=== PATIENT | female | born 1950 | race Hispanic/Latino ===

== ENCOUNTER 2016-12-09 15:28 | Inpatient (IN) | payer MEDICARE, OTHER ==
[~2016-12-09] VITALS: Ht 157.5 cm; Wt 70.1 kg
[~2016-12-09 15:28] MED LIST: Vancomycin Dose per Pharmacist XX ONE
[2016-12-09 15:49] VITALS: BP 124/73; PULSE 99; RESP 10; O2SAT 98
[2016-12-09 17:49] VITALS: BP 145/76; PULSE 113; RESP 22; O2SAT 98
[2016-12-09] MEDS ORDERED: Ondansetron 8 mg ODT Tablet ONE (17:51)
--- NOTE | 2016-12-09 18:26 | ED.REPORT ---
HPI-General Illness Date of Service Dec 09, 2016 ED Provider: Marcie Yna MD Pt is a 66 y.o. female with a hx of ESRD on hemodialysis, DM, and CVA who presents to the ED c/o shaking onset today. Pt reports associated nausea, vomiting, and temporal headache. Denies abdominal pain, fever, chills, cough, numbness, and weakness. She sates she took Tylenol around 1600 today. She is concerned as she had similar sx when she had a "blood infection". Pt's last dialysis treatment was yesterday. Nursing Notes Stated Complaint: SHAKING Chief Complaint: General Complaint Nursing Notes Reviewed: Yes Allergies: Coded Allergies: No Known Allergies (Unverified , 12/09/16) General Time Seen by MD: 18:25 Chief Complaint Other (Shaking) Hx Obtained From: Patient Arrived By: Walk-in Sudden in Onset?: Yes Onset Occurred: 9 - 12 hours ago Symptom Duration: Since onset Severity: Current: No pain currently Severity: Maximum: No pain Similar Sx Previous: Yes Past Medical History Past Medical History ESRD on hemodialysis DM II hx of CVA Reports: Hypertension Past Surgical History None reported Smoking History Former Smoker Social History Other Social History: Good social support Ambulatory Status Independent Review of Systems Full Review of Systems Constitutional: Denies: Chills, Fever Respiratory: Denies: Non-productive cough GI: Reports: Nausea, Vomiting, Denies: Abdominal pain Neurologic: Reports: Shaking, Denies: Numbness, Weakness Complete sys rev & neg: except as marked. Physical Exam Vital Signs Vital Signs Date Time Temp Pulse Resp B/P Pulse Ox O2 Delivery O2 Flow Rate FiO2 12/09/16 20:36 38.1 90 17 129/60 94 Room Air 12/09/16 19:02 39.1 100 20 38/86 92 Room Air 12/09/16 17:49 37.2 113 22 145/76 98 Room Air 12/09/16 15:49 36.8 99 10 124/73 98 Room Air Initial VS: Reviewed Head / Eyes: Atraumatic, Normocephalic, PERRL Extremities: Vascular intact, Neuro intact Skin: Warm, Dry, No cyanosis Neurologic: Alert, Oriented, Nonfocal Psychiatric: Mood/affect normal, Behavior normal, Normal thought content General/Constitutional: Awake, Alert, No acute distress, Well appearing, Well developed, Well hydrated Left AC dialysis fistula with palpable thrill Respiratory / Chest: Atraumatic, Breath sounds NL, Breath sounds = bilat, No respiratory distress Cardiovascular: Regular rhythm, Heart sounds NL Heart Rate / Rhythm: Positive: Tachycardia Abdomen: Atraumatic, Soft, Non-tender, No guarding, No rebound, No distention Interpretation & Diagnostics Lab Results Interpretation Result Diagram: 12/09/16 1858 12/09/16 1858 Test 12/09/16 18:58 12/09/16 20:37 White Blood Count 12.2th/mm3 (3.8-10.1) Red Blood Count 4.00mil/mm3 (3.90-5.20) Hemoglobin 12.2g/dL (12.0-15.6) Hematocrit 37.5% (35.0-46.0) Mean Corpuscular Volume 93.8fL (81-100) Mean Corpuscular Hemoglobin 30.5pg (27.0-35.0) Mean Corpuscular Hemoglobin Concent 32.5% (32.0-37.0) Red Cell Distribution Width 13.7% (12.3-15.4) Platelet Count 235bil/L (150-400) Neutrophils (%) (Auto) 88.2% (40-74) Lymphocytes (%) (Auto) 3.8% (14-46) Monocytes (%) (Auto) 7.4% (4-12) Eosinophils (%) (Auto) 0.2% (0-5) Basophils (%) (Auto) 0.2% (0-3) Prothrombin Time 9.9sec (8.1-12.5) Prothromb Time International Ratio 0.93ratio Activated Partial Thromboplast Time 25.4sec (22.8-33.0) Sodium Level 138mEq/L (134-144) Potassium Level 6.2mEq/L (3.5-5.2) Chloride Level 94mEq/L (97-108) Carbon Dioxide Level 25mmol/L (18-29) Blood Urea Nitrogen 40mg/dL (8-27) Creatinine 5.14mg/dL (0.57-1.00) Estimat Glomerular Filtration Rate 12mL/min (>59) Glucose Level 251mg/dL (60-99) Calcium Level 9.8mg/dL (8.5-10.1) Phosphorus Level 2.0mg/dL (2.5-4.9) Magnesium Level 2.0mg/dL (1.6-2.6) Total Bilirubin 0.5mg/dL (0.0-1.2) Aspartate Amino Transf (AST/SGOT) 21U/L (0-50) Alanine Aminotransferase (ALT/SGPT) 28U/L (0-32) Alkaline Phosphatase 105U/L (25-165) Troponin T 0.025ug/L (0.0-0.011) Pro-B-Type Natriuretic Peptide 1698pg/mL (0-301) Total Protein 7.8g/dL (6.4-8.4) Albumin 4.5g/dL (3.4-5.0) Procalcitonin 0.45ng/mL (0.00-0.08) Hold Chamberlain Top Tube Received (Received) Urine Color Yellow (YELLOW) Urine Appearance Hazy (CLEAR,HAZY) Urine pH 8.5 (5.0-8.0) Urine Specific [place] 1.015 (1.003-1.035) Urine Protein 300mg/dL (NEG,TRACE) Urine Glucose (UA) 500mg/dL (NEGATIVE) Urine Ketones Negativemg/dL (NEGATIVE) Urine Occult Blood Trace (NEGATIVE) Urine Nitrite Negative (NEGATIVE) Urine Bilirubin Negative (NEGATIVE) Urine Urobilinogen Normalmg/dL (NORMAL) Urine Leukocyte Esterase Negative (NEGATIVE) Urine RBC 0-2/hpf (0-2) Urine WBC 0-5/hpf (0-5) Urine Epithelial Cells Few/hpf (NONE-MOD) Urine Crystals None seen (NONE SEEN) Urine Bacteria Few/hpf (NONE-FEW) Urine Hyaline Casts None/lpf (NONE) Urine Granular Casts None seen (NONE SEEN) Urine Waxy Casts None seen (NONE SEEN) Urine Red Blood Cell Casts None seen (NONE SEEN) Urine White Blood Cell Casts None seen (NONE SEEN) Urine Mucus None seen (None Seen) Urine Trichomonas None seen (NONE SEEN) Urine Yeast None (NONE SEEN) Urinalysis Comment None Urine Culture Reflexed Not indicated General Lab Results Interp 1: CBC - leukocytosis ECG Interpretation ECG Interpretation: No peaked T-waves T-wave inversion AVR and AVL No prior for comparison Time: 18:49 Interpreted by: ED physician Rhythm / Conduction: Tachycardia (rate of 104) BMP / CMP Interpretation K+ elevated, Creatinine elevated X-Ray Chest Interpretation Chest Xray Interpretation: IMPRESSION: Acute disease is not seen in the two-view chest. No evidence for failure or infiltrate. Dictated by: William Marte M.D. on 12/09/2016 at 19:27 Approved by: William Marte M.D. on 12/09/2016 at 19:28 Re-Eval/Medical Decision Med Decision/Clinical Course 66-year-old female with past medical history of hypertension, diabetes, hyperlipidemia, end-stage renal disease on Sunday dialysis here febrile with Rigors and no localizing symptoms. Differential diagnosis includes but is not limited to pneumonia versus urinary tract infection versus bacteremia versus other occult infection. At this time, I do not feel she has meningitis, nor do I feel she needs lumbar puncture to rule it out. Chest x- ray is unremarkable. Urinalysis is normal. Patient has elevated creatinine and potassium consistent with end-stage renal disease. I discussed the case with nephrology Dr. Dang who recommended 30 mg of by mouth Kayexalate which I have given. CBC shows mild leukocytosis. I have given the patient vancomycin and Zosyn, admitted her to the hospitalist Dr. Connor. She is aware and amenable to admission at this time. Source of Hx: Old records Time of Eval: 20:25 Re-Evaluation/Progress Note: Pt rechecked. Discussed lab results and need for admit, pt understands and agrees with plan. Pt's mems device scientist is Dr. Maldonado. Consultation #1: Referral / Consult Name: Luz Marina Manzanares DO Consulted With: Hospitalist Call Returned at: 20:55 Note: Discussed pt conditon and pending consult with Dr. Dang, Nephrology. Hospitalist refuses admit until Nephrology consults. Consultation #2: Referral / Consult Name: Hubert Dang DO Consulted With: Nephrology Call Returned at: 21:12 Note: Consulted with Dr. Dang. Recommends 30 of Kayexalate. Consultation #3: Referral / Consult Name: Luz Marina Manzanares DO Consulted With: Hospitalist Call Returned at: 21:25 Silverware Assembler: Will see patient, Agrees with eval, Agrees with plan, Accepts admit Note: Discussed consult with Dr. Dang. Accepts pt. Counseled Regarding: Diagnosis, Lab results, Need for admission Discharge & Departure Primary Impression: Sepsis Additional Impression: Hyperkalemia Disposition: ADMITTED TO HOSPITAL Discharge Condition All VS Reviewed: Yes Condition: Stable Referrals: Juan Carlos Beasley MD (PCP) Margarita Attestation Portions of this note were transcribed by Gudelia Teresa. I, Dr. Yan personally performed the history, physical exam and medical decision-making; I reviewed and confirmed the accuracy of the information in the transcribed note. Signed by : Margarita Castro, 12/09/16 and 2158. copies to: Juan Carlos Beasley MD, Rebecca A MD Dec 09, 2016 18:26 GUDELIA TERESA Dec 09, 2016 18:34
[2016-12-09 19:02] VITALS: BP 38/86; PULSE 100; RESP 20; O2SAT 92
[2016-12-09] MEDS ORDERED: Piperacillin-Tazo 3.375 Gm Inj 3.375 GM in Dextrose 5% Minibag Plus 50 ML IV ONE (19:10)
[2016-12-09 19:17] LABS: BASOPHILS % (AUTO) 0.2 % (0-3); EOSINOPHILS % (AUTO) 0.2 % (0-5); MONOCYTES % (AUTO) 7.4 % (4-12); Mean Corpuscular Hemoglobin 30.5 pg (27.0-35.0); Mean Corpuscular Volume 93.8 fL (81-100); NEUTROPHILS % (AUTO) 88.2 % (40-74); Platelet Count 235 bil/L (150-400)
[2016-12-09] MEDS ORDERED: Vancomycin Inj 1,500 MG in 0.9% Sodium Chloride 500 ML IV ONE (19:25)
--- NOTE | 2016-12-09 19:29 | DRSVH ---
PROCEDURE: X-RAY CHEST, TWO VIEWS ([id number]) INDICATIONS: dialysis TECHNIQUE: 2 views of the chest were acquired. COMPARISON: None. FINDINGS: Surgical changes and devices: assistant service manager leads are seen over the chest. There is a stent in the region of the axillary artery on the left. Lungs and pleura: No pleural effusions or pneumothorax. Lungs are clear. Mediastinum: Mediastinal contours are normal. Heart size is normal. Bones and chest wall: No suspicious bony abnormalities. Soft tissues appear unremarkable. IMPRESSION: Acute disease is not seen in the two-view chest. No evidence for failure or infiltrate. Dictated by: iWlliam Marte M.D. on 12/09/2016 at 19:27 Approved by: William Marte M.D. on 12/09/2016 at 19:28
[2016-12-09] MEDS ORDERED: 0.9% Sodium Chloride 0 ML ONE (19:34)
[2016-12-09 19:43] LABS: INR 0.93 ratio
[2016-12-09 19:58] LABS: TROPONIN T 0.025 ug/L (0.0-0.011)
[2016-12-09 20:36] VITALS: BP 129/60; PULSE 90; RESP 17; O2SAT 94
[2016-12-09 21:07] LABS: APPEARANCE,URINE HAZY (CLEAR,HAZY); COLOR,URINE YELLOW (YELLOW); OCCULT BLOOD,URINE TRACE (NEGATIVE); PH,URINE 8.5 (5.0-8.0)
[2016-12-09 21:08] LABS: UROBILINOGEN,URINE NORMAL (NORMAL)
[2016-12-09] MEDS ORDERED: Ondansetron 2 mg/mL 2 mL Inj IVPUSH PRN ×2 (21:35→23:10)
[2016-12-09] MEDS ORDERED: Polyethylene Glycol (PEG) 17 Gm Powder PO PRN ×2 (21:35→23:10)
[2016-12-09] MEDS ORDERED: GABA-502 PO (22:38)
[2016-12-09] MEDS ORDERED: CALC500T9 PO (22:38)
[2016-12-09] MEDS ORDERED: AMLO5TAB2 PO (22:38)
[2016-12-09] MEDS ORDERED: ASPI-973 PO (22:38)
[2016-12-09] MEDS ORDERED: LISI-567 PO (22:38)
[2016-12-09] MEDS ORDERED: SIMV20TA4 PO (22:38)
[2016-12-09 22:48] VITALS: BP 123/62; PULSE 86; RESP 18; O2SAT 94
--- NOTE | 2016-12-09 22:56 | NUR ---
admit note: pt. admitted for fever, chills, shaking, nausea, since today. Pt. had dialysis yesterday, potassium was 6.2 30mg kayexalate given.
[2016-12-09] MEDS ORDERED: Alum-Mag Hydrox-Simeth 30 mL Suspension PO PRN (23:10)
--- NOTE | 2016-12-09 23:28 | PCM.HPMED ---
Subjective Date of Service Dec 09, 2016 Primary Provider: Admitting Physician: Luz Marina Manzanares DO Primary Care Physician: Juan Carlos Beasley MD Attending Physician: Luz Marina Manzanares DO Admit Status: From the Emergency Department Chief Complaint: Shaking and Chills History of Present Illness: Sol Ren is a 66 year old woman with a PMH of ESRD on MWF Hemodialysis, DM2 with nephropathy and neuropathy, and CVA who presents with a 1 day history of shaking chills which she states are very similar to a previous episode associated with a severe "blood infection". She states that she wasn't feeling well last evening following her dialysis, and when she awoke she continued to feel ill and in the afternoon began to manifest shaking and chills with a single event of emesis. She denies productive cough, SOB, chest pain, urinary symptoms, pain or redness at fistula site, neck tenderness or restricted ROM, headache, diarrhea or constipation, or any soft tissue swelling or pain. She states that she does make a small amount of urine in the mornings and did so today without incident. In the ED the patient showed leukocytosis and elevated Procalcitonin, Hyperkalemia, and a benign ECG with negative Trop. She was started on Vanco and Zosyn. Comprehensive ROS negative except as outlined above. Allergies Coded Allergies: No Known Allergies (Unverified , 12/09/16) Home Medications Amlodipine 5 mg daily Aspirin 81 mg daily Calcium carbonate 500 mg daily Gabapentin 300 mg PO hS Lisinopril 20 mg PO daily Simvastatin 20 mg po Daily PMH ESRD on dialysis DM2 with neuropathy and nephropathy CVA HTN Surgical History none Family History Diabetes in multiple family members Social History Hx Alcohol Use: No Hx Substance Use: No Smoking Status: Former Smoker Exam Vital Signs Vital Sign - Last Date Time Temp Pulse Resp B/P Pulse Ox O2 Delivery O2 Flow Rate FiO2 12/09/16 22:48 37.7 86 18 123/62 94 Room Air Exam Gen: A/O x3 pleasant cooperative woman in NAD Neck: Supple, Full ROM, non tender, no lymphadenopathy HEENT: PERRL, EOMI, no scleral icterus, no conjunctival pallor, mucous membranes dry, flaked skin on upper and lower lip CV: RRR, no murmurs rubs or gallops Resp: lungs CTA BL, no wheezing rales or rhonchi Abdomen: soft, non tender, no organomegaly, BS+ 4Q : No CVA or suprapubic tenderness Musculoskeletal: Slightly reduced muscle tone, no obvious focal cellulitic process Extr: Left ante cubital fistula without erythema or tenderness and normal thrill , no cyanosis clubbing or edema Neuro: CN 2-12 grossly intact, no focal neurologic deficit. Lab and Diagnostics Labs Item Value Date Time Neutrophils (%) (Auto) 88.2 % H 12/09/161857 Lymphocytes (%) (Auto) 3.8 % L 12/09/161857 Estimat Glomerular Filtration Rate 12 mL/min 12/09/161857 Calcium Level 9.8 mg/dL 12/09/161857 Phosphorus Level 2.0 mg/dL L 12/09/161857 Magnesium Level 2.0 mg/dL 12/09/161857 Total Bilirubin 0.5 mg/dL 12/09/161857 Aspartate Amino Transf (AST/SGOT) 21 U/L 12/09/161857 Alanine Aminotransferase (ALT/SGPT) 28 U/L 12/09/161857 Alkaline Phosphatase 105 U/L 12/09/161857 Troponin T 0.025 ug/L H 12/09/161857 Pro-B-Type Natriuretic Peptide 1698 pg/mL H 12/09/161857 Total Protein 7.8 g/dL 12/09/161857 Albumin 4.5 g/dL 12/09/161857 Procalcitonin 0.45 ng/mL H 12/09/161857 Result Diagram: 12/09/16185712/09/161857 X-Rays, CTs and MRIs X-RAY CHEST, TWO VIEWS IMPRESSION: Acute disease is not seen in the two-view chest. No evidence for failure or infiltrate. Dictated by: William Marte M.D. on 12/09/2016 at 19:27 Approved by: William Marte M.D. on 12/09/2016 at 19:28 . 12-lead ECG Sinus Tach Probable LVH LAFB Assessment & Plan Sol Ren is a 66 ESRD patient with a 1 day history of shaking chills, but without obvious focal infection. Patient denies SOB, productive cough, urinary symptoms, neck tenderness or photophobia, diarrhea or constipation, or soft tissue erythema or pain. She did have 1 episode of emesis. She is febrile up to 39 degrees with Leukocytosis with neutrophilic shift, and procalcitonin elevated indicative of infection. 1. Sepsis, present on admission, acute. Active - WBC 12.2, Tachy at 112, Febrile up to 39.1, elevated Procalcitonin at 0.45 - As yet occult source of infection, no obvious pulmonary, urinary, meningeal, or soft tissue signs or symptoms - Patient with L arm fistula, which is likely the source of infection given absence of other focal findings - Blood cultures pending - Vanco and Zosyn for broad coverage until more focal findings become available - NS @ 100 mls/hr, received bolus in ER - Lactic Acid pending and trending 2. ESRD on dialysis, present on admission, chronic. Active - MWF dialysis patient in [place] - Dr. Dang has from nephrology has been consulted and we appreciate his input - Avoid Nephrotoxic agents when possible - Defer any potential hemodialysis treatment protocol to nephrology 3. Hyperkalemia, present on admission, acuity unknown. Active - K 6.2 - Per ED discussion with nephrology patient given Kayexalate 30mg with plan to see nephro in the AM 4. HTN, present on admission, chronic. Stable - Continue home Amlodipine - Hold home Lisinopril due to hyperK 5. DM2, present on admission, chronic. Stable - Lispro low dose correctional scale - A1c pending - Continue BG monitoring - Gabapentin for neuropathy CODE STATUS: Full Code Disposition: Inpatient; anticipated length of stay greater than 2 midnights due to severity of condition and complexity of treatment plan. Pain Evaluation: Adequate Pain Control GI Prophylaxis: Proton Pump Inhibitor VTE Prophylaxis: Sub-Q Heparin (Unfractionated) VTE Mechanical Devices: Intermittant Pneumatic CD Resuscitation Status: CPR: Attempt Resuscitation Attending Statement The patient was seen and examined together with house staff on 12/10/2016 and I agree with the history, exam and plan as outlined in the note above. Deangelo Michel DO Dec 09, 2016 23:28 Luz Marina Manzanares DO Dec 10, 2016 06:14
[2016-12-09] MEDS: 0.9% Sodium Chloride 1,000 ML IV SCH (23:36)
[2016-12-09] MEDS ORDERED: Glucose 40% Oral Gel 15 Gm Tube PO PRN (23:45)
[2016-12-10] VITALS (10 sets, daily range): BP systolic 91–163; BP diastolic 46–74; PULSE 64–102; RESP 16–20; O2SAT 89–96
--- NOTE | 2016-12-10 00:12 | PCM.CONPHA ---
Subjective Date of Service: Dec 10, 2016 Requesting Provider: Deangelo Michel DO Shaking and Chills Reason for Pharmacy Consult: Vancomycin Dosing Objective Vital Signs Date Time Temp Pulse Resp B/P Pulse Ox O2 Delivery O2 Flow Rate FiO2 12/09/16 22:48 37.7 86 18 123/62 94 Room Air 12/09/16 20:36 38.1 90 17 129/60 94 Room Air 12/09/16 19:02 39.1 100 20 38/86 92 Room Air 12/09/16 17:49 37.2 113 22 145/76 98 Room Air 12/09/16 15:49 36.8 99 10 124/73 98 Room Air Intake and Output 12/07/16 12/08/16 12/09/16 23:59 23:59 23:59 Intake Total 1000 ml Balance 1000 ml Weight (Kilograms): 70.500 Height (Feet): 5 Height (Inches): 2.00 Test 12/09/16 18:58 12/09/16 20:37 White Blood Count 12.2th/mm3 (3.8-10.1) Red Blood Count 4.00mil/mm3 (3.90-5.20) Hemoglobin 12.2g/dL (12.0-15.6) Hematocrit 37.5% (35.0-46.0) Mean Corpuscular Volume 93.8fL (81-100) Mean Corpuscular Hemoglobin 30.5pg (27.0-35.0) Mean Corpuscular Hemoglobin Concent 32.5% (32.0-37.0) Red Cell Distribution Width 13.7% (12.3-15.4) Platelet Count 235bil/L (150-400) Neutrophils (%) (Auto) 88.2% (40-74) Lymphocytes (%) (Auto) 3.8% (14-46) Monocytes (%) (Auto) 7.4% (4-12) Eosinophils (%) (Auto) 0.2% (0-5) Basophils (%) (Auto) 0.2% (0-3) Prothrombin Time 9.9sec (8.1-12.5) Prothromb Time International Ratio 0.93ratio Activated Partial Thromboplast Time 25.4sec (22.8-33.0) Sodium Level 138mEq/L (134-144) Potassium Level 6.2mEq/L (3.5-5.2) Chloride Level 94mEq/L (97-108) Carbon Dioxide Level 25mmol/L (18-29) Blood Urea Nitrogen 40mg/dL (8-27) Creatinine 5.14mg/dL (0.57-1.00) Estimat Glomerular Filtration Rate 12mL/min (>59) Glucose Level 251mg/dL (60-99) Calcium Level 9.8mg/dL (8.5-10.1) Phosphorus Level 2.0mg/dL (2.5-4.9) Magnesium Level 2.0mg/dL (1.6-2.6) Total Bilirubin 0.5mg/dL (0.0-1.2) Aspartate Amino Transf (AST/SGOT) 21U/L (0-50) Alanine Aminotransferase (ALT/SGPT) 28U/L (0-32) Alkaline Phosphatase 105U/L (25-165) Troponin T 0.025ug/L (0.0-0.011) Pro-B-Type Natriuretic Peptide 1698pg/mL (0-301) Total Protein 7.8g/dL (6.4-8.4) Albumin 4.5g/dL (3.4-5.0) Procalcitonin 0.45ng/mL (0.00-0.08) Hold Chamberlain Top Tube Received (Received) Urine Color Yellow (YELLOW) Urine Appearance Hazy (CLEAR,HAZY) Urine pH 8.5 (5.0-8.0) Urine Specific [place] 1.015 (1.003-1.035) Urine Protein 300mg/dL (NEG,TRACE) Urine Glucose (UA) 500mg/dL (NEGATIVE) Urine Ketones Negativemg/dL (NEGATIVE) Urine Occult Blood Trace (NEGATIVE) Urine Nitrite Negative (NEGATIVE) Urine Bilirubin Negative (NEGATIVE) Urine Urobilinogen Normalmg/dL (NORMAL) Urine Leukocyte Esterase Negative (NEGATIVE) Urine RBC 0-2/hpf (0-2) Urine WBC 0-5/hpf (0-5) Urine Epithelial Cells Few/hpf (NONE-MOD) Urine Crystals None seen (NONE SEEN) Urine Bacteria Few/hpf (NONE-FEW) Urine Hyaline Casts None/lpf (NONE) Urine Granular Casts None seen (NONE SEEN) Urine Waxy Casts None seen (NONE SEEN) Urine Red Blood Cell Casts None seen (NONE SEEN) Urine White Blood Cell Casts None seen (NONE SEEN) Urine Mucus None seen (None Seen) Urine Trichomonas None seen (NONE SEEN) Urine Yeast None (NONE SEEN) Urinalysis Comment None Urine Culture Reflexed Not indicated Assessment/Plan Assessment/Plan A: * Vancomycin doing by pharmacy for 66 y/o woman with sepsis of occult source * The patient has ESRD and has a hemodialysis schedule of MWF * She received a 1500 mg IV vancomycin dose in the ED * She is also being started on Zosyn * Estimated vancomycin volume of distribution for the patient is 49 liters * Estimated initial vancomycin concentration is 30 mcg/mL P: * Drawing a vancomycin level in the morning * Pharmacy to determine if the patient requires additional doses of vancomycin before and after dialysis * Target a vancomycin level of 15 - 20 mcg/mL Thank you. Pharmacy will continue to follow. Kimberly Ramsey, PharmD Kimberly Ramsey Dec 10, 2016 00:12
[2016-12-10] MEDS: Heparin 5,000 Unit/mL Inj SUBQ SCH ×3 (00:31→16:35)
[2016-12-10 02:37] LABS: BASOPHILS % (AUTO) 0.1 % (0-3); EOSINOPHILS % (AUTO) 0.1 % (0-5); MONOCYTES % (AUTO) 7.4 % (4-12); Mean Corpuscular Hemoglobin 30.4 pg (27.0-35.0); Mean Corpuscular Volume 96.2 fL (81-100); NEUTROPHILS % (AUTO) 85.8 % (40-74); Platelet Count 168 bil/L (150-400)
[2016-12-10 03:25] LABS: Magnesium 1.8 mg/dL (1.6-2.6); Phosphorus 2.6 mg/dL (2.5-4.9)
[2016-12-10] MEDS ORDERED: Vancomycin Serum Level XX ONE (05:00)
[2016-12-10] MEDS: Insulin LISPRO 300 Unit/3 mL Inj SUBQ SCH ×4 (08:00→21:04)
[2016-12-10] MEDS: Vancomycin Dose per Pharmacist XX SCH (08:30)
[2016-12-10] MEDS: Pantoprazole 20 mg ER24 Tablet PO SCH (08:47)
[2016-12-10] MEDS: Piperacillin-Tazo 3.375 Gm Inj 3.375 GM in Dextrose 5% Minibag Plus 50 ML IV SCH ×2 (08:48→20:17)
[2016-12-10] MEDS: 0.9% Sodium Chloride 1,000 ML IV SCH (11:08)
--- NOTE | 2016-12-10 12:17 | NUR ---
Social Work- initial assessment: Data:See initial assessment. Pt is a 66 y/o female who was admitted on 12/09/16 for sepsis per H&P. Pt's insurance is [employer] and PCP is Juan Carlos Beasley MD. EMR reviewed. MARISELA met with pt and Racheal [phone] at bedside to discuss discharge planning, SW role explained. Pt is alert and oriented x3. Pt resides at home with her in [place] where she remains independent with ADLS. Pt and were down visiting family in [facility] and pt had to come into the hospital. Pt does not use any DME and does not drive. Pt has no HH or SNF history. Pt has no moth exterminator care or VA benefits. Pt goes to dialysis in [place] on . SW discussed DPOA/advanced directive, pt states they have the paperwork, just need to fill this out. SW encouraged pt to complete this paperwork. Per RN notes, pt has been up SBA in room. Pt and decline any SW needs and pt feels like she has enough help at home. SW provided phone number and plan on white board in room. Pt's to provide transport home at discharge. No anticipated discharge needs. SW will continue to follow if needs arise. Assessment:Pt who is independent at baseline. Plan:Pt to discharge home when medically stable via POV. No anticipated discharge needs. SW will continue to follow if needs arise. KIRIT Cohen Addendum: 12/10/16 at 1222 by JOSE SHELLEY Amended: Links added.
--- NOTE | 2016-12-10 13:19 | CONS ---
[address] [address] CONSULTATION REPORT PATIENT: CARYL ROUSSEAU : 1950 MR#: [id number] ADMIT: 12/09/2016 JOB ID: [id number] CORRECTED REPORT: RENAL CONSULTATION: DATE OF SERVICE: 12/10/2016 HISTORY OF PRESENT ILLNESS: Patient is a very pleasant 66-year-old female who was admitted to [facility] for abrupt onset of fever and chills. She has a history of end-stage renal disease and Renal consultation is being sought for further evaluation of her chronic kidney disease. The patient states that she was feeling well until she was in [place] visiting her daughter and grandchildren yesterday, when at about three o'clock in the afternoon, she had an abrupt onset of fever, chills, and rigors. She also related a history of some nausea and vomiting. She does not relate a history of any recent upper respiratory tract symptoms, sore throat, nasal congestion, otalgia, cough, wheezing, dysuria, or hematuria. She further denies a history of any rash or arthralgias. She was seen in the emergency room at [facility] where she had a white count of 12.2 and 88% neutrophils. Blood cultures were drawn and she was started on antibiotics. This morning, the patient states that she feels well. Her temperature peaked at 39.1 yesterday and she has remained afebrile since that time. She is able to eat her diet, and other than feeling weak, she states she feels well. She has been on dialysis for approximately four years. She normally dialyzes on Sunday, Sunday, and Sunday for 3.5 hours up in [place]. The etiology of her renal failure is due to diabetic nephropathy. She dialyzes through a left antecubital AV fistula. She does not have any indwelling devices in her. There is also a history of hypertension, history of a stroke with a slight residual left-sided weakness, and hyperlipidemia. She denies any headache, visual disturbances, chest pain, cough, wheezing, orthopnea, or jaundice. PAST MEDICAL HISTORY: Significant for end-stage renal disease secondary to longstanding diabetes mellitus. There is also a history of hypertension, stroke, and hyperlipidemia as detailed above. Otherwise, she denies a history of any seizure disorder, myocardial infarction, congestive heart failure, asthma, emphysema, tuberculosis, hepatitis, malignancies, or thyroid illness. PAST SURGICAL HISTORY: Remarkable for two sections, bilateral carpal tunnel releases, bilateral rotator cuff surgeries, cholecystectomy, and AV fistula. ALLERGIES: She denies any history of any allergies to any food or any medications. SOCIAL HISTORY: She denies use of alcohol, tobacco, or illicit drugs. She is normally able to perform her activities of daily living without significant problems or restriction. FAMILY HISTORY: Unremarkable. REVIEW OF SYSTEMS: As detailed above. MEDICATIONS: Medications at time of admission include gabapentin, atorvastatin, vancomycin, Zosyn, amlodipine, aspirin, insulin, famotidine. PHYSICAL EXAMINATION: General: Physical examination revealed a mildly pale, well-developed 66-year-old female who was alert and oriented x3, in no distress at time of my evaluation. Vital signs: Her blood pressure is 112/55 with a pulse of 78. HEENT examination is remarkable for mildly pale sclerae. Neck is supple without adenopathy, thyromegaly, or jugular venous distention. Lungs are clear to auscultation. Heart is regular and rhythmical with a soft systolic murmur. Abdomen is soft, without any tenderness, rebound, guarding, masses, or hepatosplenomegaly. Extremities did not show any evidence of any clubbing, cyanosis, or edema. Half and half nails were noted. Skin turgor was good and there is no evidence of any rashes. LABORATORY EXAMINATION: Her morning labs showed a 3.5 g drop in her hemoglobin from 12.2 yesterday evening to 8.7 this morning. I have some concerns about this and I am unsure as to whether this is lab error. Otherwise, this morning, her sodium is 139, potassium 4.8, chloride 102, bicarbonate 24, BUN and creatinine were 45 and 5.47, glucose was 226, and liver function studies were normal. Vancomycin level this morning was 22.5. Her urinalysis did not show any evidence of any white cells or bacteria. IMPRESSION: 1. End-stage renal disease, dialysis dependent. 2. Diabetic nephropathy. 3. Hypertension with hypertensive heart disease and hypertensive nephrosclerosis. 4. Hyperlipidemia. 5. Acute drop in hemoglobin. Laboratory error versus actual blood loss. RECOMMENDATION: 1. I would like to check stool guaiacs on her and recheck her hemoglobin. 2. I will make arrangements for her dialysis in the morning. Once again, I would like to thank you for allowing me to participate in the care of this most pleasant and interesting patient. I will be following her closely with you. Corrected by GUSTABO 01/25/17 at 11:51am DOS.
--- NOTE | 2016-12-10 13:47 | NUR ---
Vitals/NS Pt. had several low BP last night, but they have been in the 110s/50s today. Other vitals stable. NS dc'd per MD order at 1000 due to pt. being on dialysis, M,W, F.
[2016-12-10] MEDS: Sodium Chloride LOK Flush 10 mL Syringe IVFLUSH SCH ×2 (16:35→21:04)
--- NOTE | 2016-12-10 19:04 | PCM.PNMED ---
Subjective Date of Service Dec 10, 2016 Subjective Feels well today, resting in bed comfortably when I visit with her. Family at bedside. No more fevers or chills currently, no chest pain no nausea vomiting diarrhea or constipation. Exam Vital Signs Vital Sign - Last Date Time Temp Pulse Resp B/P Pulse Ox O2 Delivery O2 Flow Rate FiO2 12/10/16 16:23 37.0 64 141/68 96 Room Air 12/10/16 12:43 18 Intake and Output 12/09/16 12/09/16 12/10/16 Cumulative From/Thru 15:00 23:00 07:00 12/09/16 15:49 - 12/10/16 06:23 Intake Total 1000 ml 1297 ml 2297 ml Output Total 151 ml 151 ml Balance 1000 ml 1146 ml 2146 ml Intake Oral 350 ml 350 ml IV Total 1000 ml 947 ml 1947 ml Output Urine Total 150 ml 150 ml Urine/Stool Mix 1 ml 1 ml # Bowel Movements 3 3 Exam General: Alert, Oriented X3, NAD Head: Normocephalic, atraumatic Eyes: DAVE, EOMI, no scleral Icterus Chest: clear to auscultation B/L, no wheezing rales or rhonchi Heart: Regular rate and rhythm. Normal S1, S2, no murmurs noted Abdomen: soft, non-tender. Bowel sounds are normoactive. No guarding or rebound. Extremities: no cyanosis, clubbing or edema. IVs and Medications Medications Reviewed: Medications were reviewed in detail Lab and Diagnostics Result Diagram: 12/10/1622412/10/16224 X-Rays, CTs and MRIs X-RAY CHEST, TWO VIEWS IMPRESSION: Acute disease is not seen in the two-view chest. No evidence for failure or infiltrate. Dictated by: William Marte M.D. on 12/09/2016 at 19:27 Approved by: William Marte M.D. on 12/09/2016 at 19:28 . 12-lead ECG Sinus Tach Probable LVH LAFB Assessment & Plan Sol Ren is a 66 ESRD patient with a 1 day history of shaking chills, but without obvious focal infection. Patient denies SOB, productive cough, urinary symptoms, neck tenderness or photophobia, diarrhea or constipation, or soft tissue erythema or pain. She did have 1 episode of emesis. She is febrile up to 39 degrees with Leukocytosis with neutrophilic shift, and procalcitonin elevated indicative of infection. 1. Sepsis, present on admission, acute. Active -Awaiting cultures, continue vancomycin and Zosyn for now. -No longer febrile. Improving 2. ESRD on dialysis, present on admission, chronic. Active - MWF dialysis patient in [place] - Dr. Dang has from nephrology has been consulted and we appreciate his input - Avoid Nephrotoxic agents when possible - Defer any potential hemodialysis treatment protocol to nephrology 3. Hyperkalemia, present on admission, acuity unknown. Active - K 6.2 on admission, now within normal limits 4. HTN, present on admission, chronic. Stable - Continue home Amlodipine -Holding lisinopril due to hyperkalemia 5. DM2, present on admission, chronic. Stable - Lispro low dose correctional scale - A1c pending - Continue BG monitoring - Gabapentin for neuropathy CODE STATUS: Full Code DVT prophylaxis: Heparin Disposition: Independent with her ADLs, home likely at discharge, pending hospital course. GI Prophylaxis: Proton Pump Inhibitor VTE Prophylaxis: Sub-Q Heparin (Unfractionated) VTE Mechanical Devices: Intermittant Pneumatic CD Resuscitation Status: CPR: Attempt Resuscitation Vicente Alves DO Dec 10, 2016 19:04
[2016-12-11] VITALS (7 sets, daily range): BP systolic 125–180; BP diastolic 63–72; PULSE 75–90; RESP 15–18; O2SAT 91–95
[2016-12-11] MEDS: Heparin 5,000 Unit/mL Inj SUBQ SCH ×3 (00:13→17:11)
[2016-12-11 04:23] LABS: BASOPHILS % (AUTO) 0.2 % (0-3); EOSINOPHILS % (AUTO) 1.3 % (0-5); MONOCYTES % (AUTO) 10.1 % (4-12); Mean Corpuscular Hemoglobin 30.4 pg (27.0-35.0); Mean Corpuscular Volume 97.5 fL (81-100); NEUTROPHILS % (AUTO) 71.5 % (40-74); Platelet Count 181 bil/L (150-400)
[2016-12-11] MEDS ORDERED: Vancomycin Serum Level XX ONE (05:00)
--- NOTE | 2016-12-11 08:22 | NUR ---
0830 amlodipine and Zosyn 0830 amlodipine and Zosyn withheld for dialysis per discussion with Lynda quantitative analyst marketing. Zosyn will be started upon arrival back to unit.
[2016-12-11] MEDS: Vancomycin Dose per Pharmacist XX SCH (08:24)
[2016-12-11] MEDS: Sodium Chloride LOK Flush 10 mL Syringe IVFLUSH SCH ×3 (08:38→23:47)
[2016-12-11] MEDS: Insulin LISPRO 300 Unit/3 mL Inj SUBQ SCH ×4 (08:38→20:58)
[2016-12-11] MEDS: Pantoprazole 20 mg ER24 Tablet PO SCH (08:38)
--- NOTE | 2016-12-11 09:34 | NUR ---
pt arrived to [facility] for DIALYSIS at ~0915 via bed report received from PRISCILLA RN (PCC) tele secured entrance monitor informed of temp room location pt alert/oriented x3, denies complaints brine room laborer at bedside; will cont to monitor
--- NOTE | 2016-12-11 14:50 | PCM.PNNEPH ---
Subjective Date of Service Dec 11, 2016 Subjective Patient continues to do well. Her hemoglobin remains low at 8.6 and her stool guaiac is positive. I would be very concerned about an ongoing GI bleed in this patient. Her cultures come back negative. Today is her normal dialysis day. Exam Vital Signs Vital Sign - Last Date Time Temp Pulse Resp B/P Pulse Ox O2 Delivery O2 Flow Rate FiO2 12/11/16 10:12 84 12/11/16 08:31 37.1 18 152/71 92 Room Air Intake and Output 12/10/16 12/10/16 12/11/16 Cumulative From/Thru 15:00 23:00 07:00 12/09/16 15:49 - 12/11/16 06:19 Intake Total 790 ml 800 ml 3887 ml Output Total 600 ml 350 ml 1101 ml Balance 190 ml 450 ml 2786 ml Intake Oral 680 ml 800 ml 1830 ml IV Total 110 ml 2057 ml Output Urine Total 600 ml 350 ml 1100 ml Urine/Stool Mix 1 ml # Bowel Movements 1 3 7 Exam Lungs are clear to auscultation. Abdomen soft systolic murmur. Abdomen soft without any tenderness or rebound guarding masses or hepatosplenomegaly. Extremities show any evidence of any clubbing, cyanosis, or edema. Skin turgor is good and there is no evidence of any rashes. Lab and Diagnostics Result Diagram: 12/11/16 0350 12/11/16 0350 X-Rays, CTs and MRIs X-RAY CHEST, TWO VIEWS IMPRESSION: Acute disease is not seen in the two-view chest. No evidence for failure or infiltrate. Dictated by: William Marte M.D. on 12/09/2016 at 19:27 Approved by: William Marte M.D. on 12/09/2016 at 19:28 . 12-lead ECG Sinus Tach Probable LVH LAFB Plan Impression Impression #1 end-stage renal disease dialysis dependent #2 acute blood loss with positive guaiac stools Recommendations #1 the patient to dialyze today for routine treatment for 3-1/2 A MAX DIALYZER, 2 POTASSIUM BATH, 450 BLOOD FLOW, 1000 HEPARIN AND 500 NOW AND 2 L OF FLUID TO BE TAKEN OFF. I WOULD ALSO STRONGLY URGE A GI CONSULT FOR EVALUATION OF HER GUAIAC POSITIVE STOOLS AND DROP IN HER HEMOGLOBIN. Hubert Dang DO Dec 11, 2016 14:50
--- NOTE | 2016-12-11 14:55 | NUR ---
[facility] ecclesiastical worker attempted to meet with patient to have YUE signed, but patient is off of the floor for dialysis.
--- NOTE | 2016-12-11 14:58 | NUR ---
Dialysis note: 3 1/2 hr tx, Net UF 2.0 left UA fistula accessed by tech without difficulty. lidocaine used. consent signed. QB 450, BP stable throughout tx. Hep serologies drawn. BG 133 at 1305. Pt ate lunch. Clamped x 10 min. site secured with bandaids, gauze, tape. Please see DTR for complete record of VS. Report given to primary RN Aicha Vance. Pt returned to floor stable.
[2016-12-11] MEDS: Piperacillin-Tazo 3.375 Gm Inj 3.375 GM in Dextrose 5% Minibag Plus 50 ML IV SCH ×2 (15:57→22:47)
[2016-12-11] MEDS ORDERED: Vancomycin Inj 750 MG in 0.9% Sodium Chloride 250 ML IV ONE ×2 (16:00→20:00)
--- NOTE | 2016-12-11 17:45 | PCM.PNMED ---
Subjective Date of Service Dec 11, 2016 Subjective Patient doing well currently. She is currently receiving dialysis when I visit with her. No fevers or chills, no rigors. No chest pain, diarrhea constipation , abdominal pain. Exam Vital Signs Vital Sign - Last Date Time Temp Pulse Resp B/P Pulse Ox O2 Delivery O2 Flow Rate FiO2 12/11/16 16:27 36.6 84 18 143/69 95 Room Air Intake and Output 12/10/16 12/10/16 12/11/16 Cumulative From/Thru 15:00 23:00 07:00 12/09/16 15:49 - 12/11/16 06:19 Intake Total 790 ml 800 ml 3887 ml Output Total 600 ml 350 ml 1101 ml Balance 190 ml 450 ml 2786 ml Intake Oral 680 ml 800 ml 1830 ml IV Total 110 ml 2057 ml Output Urine Total 600 ml 350 ml 1100 ml Urine/Stool Mix 1 ml # Bowel Movements 1 3 7 Exam General: Alert, Oriented X3, NAD Head: Normocephalic, atraumatic Eyes: DAVE, EOMI, no scleral Icterus Chest: clear to auscultation B/L, no wheezing rales or rhonchi Heart: Regular rate and rhythm. Normal S1, S2, no murmurs noted Abdomen: soft, non-tender. Bowel sounds are normoactive. No guarding or rebound. Extremities: no cyanosis, clubbing or edema. IVs and Medications Medications Reviewed: Medications were reviewed in detail Lab and Diagnostics Result Diagram: 12/11/16 0350 12/11/16 0350 X-Rays, CTs and MRIs X-RAY CHEST, TWO VIEWS IMPRESSION: Acute disease is not seen in the two-view chest. No evidence for failure or infiltrate. Dictated by: William Marte M.D. on 12/09/2016 at 19:27 Approved by: William Marte M.D. on 12/09/2016 at 19:28 . 12-lead ECG Sinus Tach Probable LVH LAFB Assessment & Plan Sol Ren is a 66 ESRD patient with a 1 day history of shaking chills, but without obvious focal infection. Patient denies SOB, productive cough, urinary symptoms, neck tenderness or photophobia, diarrhea or constipation, or soft tissue erythema or pain. She did have 1 episode of emesis. She is febrile up to 39 degrees with Leukocytosis with neutrophilic shift, and procalcitonin elevated indicative of infection. 1. Sepsis, present on admission, acute. Active -Awaiting cultures, continue vancomycin and Zosyn for now. -No longer febrile. Improving -Cultures show no growth to date. At 24 hours -We will consult infectious disease if they come back positive 2. ESRD on dialysis, present on admission, chronic. Active - MWF dialysis patient in [place] - Dr. Dang has from nephrology has been consulted and we appreciate his input - Avoid Nephrotoxic agents when possible - Defer any potential hemodialysis treatment protocol to nephrology 3. Hyperkalemia, present on admission, acuity unknown. Active - K 6.2 on admission, now within normal limits 4. HTN, present on admission, chronic. Stable - Continue home Amlodipine -Holding lisinopril due to hyperkalemia 5. DM2, present on admission, chronic. Stable - Lispro low dose correctional scale - A1c pending - Continue BG monitoring - Gabapentin for neuropathy CODE STATUS: Full Code DVT prophylaxis: Heparin Disposition: Independent with her ADLs, home likely at discharge, pending hospital course. GI Prophylaxis: Proton Pump Inhibitor VTE Prophylaxis: Sub-Q Heparin (Unfractionated) VTE Mechanical Devices: Intermittant Pneumatic CD Resuscitation Status: CPR: Attempt Resuscitation Vicente Alves DO Dec 11, 2016 17:45
--- NOTE | 2016-12-11 19:29 | NUR ---
Post Dialysis No reports of chest pain/pressure/discomfort. Tele SR 80s, BP 150s systolic this AM -- MD aware. No reports of SOB/dizziness. SPO2 on RA 92%. No reports of n/v or abdominal pain. Reported very soft stool this AM. Patient is MWF dialysis patient, 2L removed per lifter/driver. Alert and oriented x3, KIM, reports bilateral LE numbness/tingling (worse at night) r/t DM neuropathy. Left side slightly weaker than right from past CVA.
[2016-12-12] VITALS (9 sets, daily range): BP systolic 148–174; BP diastolic 69–73; PULSE 63–74; RESP 16–18; O2SAT 93–98
--- NOTE | 2016-12-12 00:05 | NUR ---
TRANSFERRED FROM ROOM 2026 Report rec'd from Niecy Harmon RN @ 0000. Pt to be transferred to [facility] 3022 from [facility] 2026. Awaiting arrival of pt at this time.
[2016-12-12] MEDS: Heparin 5,000 Unit/mL Inj SUBQ SCH ×3 (00:58→16:35)
[2016-12-12] MEDS ORDERED: Vancomycin Serum Trough XX ONE (05:00)
[2016-12-12] MEDS: Insulin LISPRO 300 Unit/3 mL Inj SUBQ SCH ×4 (07:21→21:07)
[2016-12-12] MEDS: Pantoprazole 20 mg ER24 Tablet PO SCH (07:21)
[2016-12-12] MEDS: Piperacillin-Tazo 3.375 Gm Inj 3.375 GM in Dextrose 5% Minibag Plus 50 ML IV SCH (07:22)
[2016-12-12] MEDS: Vancomycin Dose per Pharmacist XX SCH (08:07)
[2016-12-12] MEDS: Sodium Chloride LOK Flush 10 mL Syringe IVFLUSH SCH ×2 (08:07→16:30)
[2016-12-12 08:54] LABS: BASOPHILS % (AUTO) 0.3 % (0-3); EOSINOPHILS % (AUTO) 3.3 % (0-5); MONOCYTES % (AUTO) 13.4 % (4-12); Mean Corpuscular Hemoglobin 30.8 pg (27.0-35.0); Mean Corpuscular Volume 94.2 fL (81-100); Platelet Count 184 bil/L (150-400)
--- NOTE | 2016-12-12 12:12 | PCM.PNNEPH ---
Subjective Date of Service Dec 12, 2016 Subjective Patient continues to do well. Her cultures come back negative. She denies any further fever, chills, chest pain, shortness of breath nausea or vomiting. Exam Vital Signs Vital Sign - Last Date Time Temp Pulse Resp B/P Pulse Ox O2 Delivery O2 Flow Rate FiO2 12/12/16 11:29 72 12/12/16 08:40 36.6 18 162/73 98 Room Air Intake and Output 12/11/16 12/11/16 12/12/16 Cumulative From/Thru 15:00 23:00 07:00 12/09/16 15:49 - 12/12/16 06:07 Intake Total 480 ml 513 ml 4880 ml Output Total 2000 ml 200 ml 0 ml 3301 ml Balance -2000 ml 280 ml 513 ml 1579 ml Intake Oral 480 ml 150 ml 2460 ml IV Total 363 ml 2420 ml Output Urine Total 200 ml 0 ml 1300 ml Urine/Stool Mix 1 ml Ultrafiltrate 2000 ml 2000 ml # Bowel Movements 1 8 Exam Lungs are clear to auscultation. Heart is regular and rhythmic with a soft systolic murmur. Abdomen soft without tenderness rebound guarding masses or hepatosplenomegaly. Extremities show any evidence of any clubbing cyanosis or edema. Skin turgor is good. Lab and Diagnostics Result Diagram: 12/12/16 0820 12/12/16 0655 X-Rays, CTs and MRIs X-RAY CHEST, TWO VIEWS IMPRESSION: Acute disease is not seen in the two-view chest. No evidence for failure or infiltrate. Dictated by: William Marte M.D. on 12/09/2016 at 19:27 Approved by: William Marte M.D. on 12/09/2016 at 19:28 . 12-lead ECG Sinus Tach Probable LVH LAFB Plan Impression Impression #1 end-stage renal disease dialysis dependent #2 hypertension with hypertensive heart disease and hypertensive nephrosclerosis. Recommendation #1 for my point of view she can be discharged pending the primary team dislocation. If you Eliseo tomorrow of course we will make arrangements for her dialysis. Hubert Dang DO Dec 12, 2016 12:12
--- NOTE | 2016-12-12 15:19 | PCM.PHAPRO ---
Progress Shaking and Chills VANCOMYCIN DOSING PER PHARMACY ESRD DOSING WBC: 6.6 (downtrending) Afebrile since 12/10/16 Blood cultures: NGx48 hrs Random vancomycin level: 21.6 Last dose: 750mg x 1 post HD on 12/11/16 Plan: Will not redose tonight with level > 20. Anticipate additional dose tomorrow post-HD (if continued). Will continue to follow random AM levels. Osvaldo Alcala Dec 12, 2016 15:19
--- NOTE | 2016-12-12 18:00 | PCM.PNMED ---
Subjective Date of Service Dec 12, 2016 Subjective denies any new issues/complaints Exam Vital Signs Vital Sign - Last Date Time Temp Pulse Resp B/P Pulse Ox O2 Delivery O2 Flow Rate FiO2 12/12/16 16:16 36.8 74 16 149/73 94 Room Air Intake and Output 12/11/16 12/11/16 12/12/16 Cumulative From/Thru 15:00 23:00 07:00 12/09/16 15:49 - 12/12/16 06:07 Intake Total 480 ml 513 ml 4880 ml Output Total 2000 ml 200 ml 0 ml 3301 ml Balance -2000 ml 280 ml 513 ml 1579 ml Intake Oral 480 ml 150 ml 2460 ml IV Total 363 ml 2420 ml Output Urine Total 200 ml 0 ml 1300 ml Urine/Stool Mix 1 ml Ultrafiltrate 2000 ml 2000 ml # Bowel Movements 1 8 General: Alert, Oriented X3, Cooperative, No Acute Distress Head: Normal Eyes: Scleral Anicteric Nose: Mucous Membr Moist/[place] Mouth: Mucous Membr Moist/[place] Neck: Supple Chest & Lungs: Chest Wall Normal, Clear to auscultation & percussion Cardiovascular: Regular Rate/Rhythm Abdomen: Non-tender, Non-distended, Normoactive bowel tones, Soft Extremities: No cyanosis/clubbing/edma bilat Neurological: Grossly Neurologically Intact, Normal Speech IVs and Medications Medications Reviewed: Medications were reviewed in detail Lab and Diagnostics Result Diagram: 12/12/16 0820 12/12/16 0655 X-Rays, CTs and MRIs X-RAY CHEST, TWO VIEWS IMPRESSION: Acute disease is not seen in the two-view chest. No evidence for failure or infiltrate. Dictated by: William Marte M.D. on 12/09/2016 at 19:27 Approved by: William Marte M.D. on 12/09/2016 at 19:28 . 12-lead ECG Sinus Tach Probable LVH LAFB Assessment & Plan 66 year old female with ESRD presenting with 1 day history of shaking chills, but without obvious focal infection. Patient denies SOB, productive cough, urinary symptoms, neck tenderness or photophobia, diarrhea or constipation, or soft tissue erythema or pain. # Suspected acute sepsis, present on admission. Ruled out given no obvious source of infection and clinically resolved. -f/u pending cultures for one more day - Stop Vancomycin and Zosyn given no obvious source of infection at this time -No longer febrile. Improving -Cultures show no growth to date. -We will consult infectious disease if they come back positive or has more fever # ESRD on dialysis, present on admission, chronic. Active - MWF dialysis patient in [place] - Dr. Dang has from nephrology has been consulted and we appreciate his input - Avoid Nephrotoxic agents when possible - Defer any potential hemodialysis treatment protocol to nephrology # Hyperkalemia, present on admission, acuity unknown. Resovled. - f/u # HTN, present on admission, chronic. Stable - Continue home Amlodipine - Resume lisinopril (held due to hyperkalemia) when OK by nephrology # DM2, present on admission, chronic. Stable - Lispro low dose correctional scale - A1c pending - Continue BG monitoring - Gabapentin for neuropathy Dispo: likely tomorrow after her dialysis and if remain afebrile and cultures still negative. GI Prophylaxis: Proton Pump Inhibitor VTE Prophylaxis: Sub-Q Heparin (Unfractionated) VTE Mechanical Devices: Intermittant Pneumatic CD Resuscitation Status: CPR: Attempt Resuscitation Claudio Dorado Dec 12, 2016 18:00
[2016-12-13 00:08] VITALS: PULSE 70
[2016-12-13] MEDS: Sodium Chloride LOK Flush 10 mL Syringe IVFLUSH SCH ×2 (00:11→08:00)
[2016-12-13 00:13] VITALS: BP 163/73; PULSE 78; RESP 18; O2SAT 92
[2016-12-13] MEDS: Heparin 5,000 Unit/mL Inj SUBQ SCH ×2 (00:13→08:01)
[2016-12-13 03:42] VITALS: BP 164/72; PULSE 74; RESP 16; O2SAT 93
[2016-12-13 04:08] VITALS: PULSE 65
[2016-12-13 04:20] VITALS: PULSE 64
--- NOTE | 2016-12-13 05:30 | NUR ---
HTN: P: HTN; SBP in the 160s. I: Norvasc 5 mg administered last night. E: Last BP this am was 164/72; medication not effective at this time.
[2016-12-13] MEDS: Pantoprazole 20 mg ER24 Tablet PO SCH (08:00)
[2016-12-13] MEDS: Insulin LISPRO 300 Unit/3 mL Inj SUBQ SCH ×2 (08:05→12:00)
--- NOTE | 2016-12-13 11:39 | PCM.DIMED ---
Discharge Instructions Date of Service Dec 13, 2016 Dates of Hospitalization Dec 09, 2016 at 21:49 Discharge Diagnosis Discharge Diagnosis # Suspected acute sepsis, present on admission. Ruled out given no obvious source of infection and clinically resolved. # Acute fever of unclear origin, present on admission. Resolved. # Chronic end stage renal disease (ESRD) on dialysis. ongoing # Hyperkalemia, present on admission, acuity unknown. Resolved. # Chronic Hypertension, present on admission. ongoing. # Chronic diabetes mellitus type II. Stable - HgA1c 7.7 - Will need close followup with primary care provider for further treatment and management as outpatient. Medication Instructions Resume home medications as before Diet Heart Healthy, Diabetic, Renal Diet Activity No restrictions Call your provider Fever or Chills, Shortness of breath, Vomitting, Excessive diarrhea Patient Instructions Seek immediate medical attention if any new or worsening signs or symptoms occur. Follow-up plan 1. Followup with primary care provider in 2-7 days 2. Followup with your occ med physician in 2-5 days 3. Followup at dialysis center as previously scheduled Follow-up Provider: Juan Carlos Beasley MD Provider: David Garcia MD, Mas[place] Dec 13, 2016 11:39
--- NOTE | 2016-12-13 11:51 | NUR ---
Social Work: Discharge Data: Pt is on day 4 of hospitalization. EMR reviewed, pt discussed in rounds. D/C orders are in. Pt to discharge after dialysis today. No further d/c planning needs. ENGINEER FIRST ASSISTANT will continue to follow if needs arise. Assessment: Pt who is independent at baseline. Plan: Pt will d/c home today via POV after dialysis per MD. No further d/c planning needs. ENGINEER FIRST ASSISTANT will continue to follow if needs arise. KIRIT Swan
[2016-12-13 12:40] VITALS: PULSE 77
--- NOTE | 2016-12-13 13:12 | NUR ---
Dialysis note 3.5 hr HD tx. 2000ml net UF removed. 2 15 g needles to TIMUR fistula. Lido used. See DTR for complete vitals details. Pt rested comfortably thru tx without complaints or problems. Sureseals/clamps X15 mins post tx with some extended art bleeding noted. Report given and pt returned to floor stable.
--- NOTE | 2016-12-13 15:31 | PCM.DC.MED ---
Discharge Summary Date of Service Dec 13, 2016 Dates of Hospitalization Date of Hospital Admission Dec 09, 2016 at 21:49 Date of Discharge: Dec 13, 2016 Providers: Admitting Physician: Luz Marina Manzanares DO Primary Care Physician: Juan Carlos Beasley MD Attending Physician: Luz Marina Manzanares DO Diagnosis at Time of Discharge Diagnosis at Time of Discharge # Suspected acute sepsis, present on admission. Ruled out given no obvious source of infection and clinically resolved. # Acute fever of unclear origin, present on admission. Resolved. # Chronic end stage renal disease (ESRD) on dialysis. ongoing # Hyperkalemia, present on admission, acuity unknown. Resolved. # Chronic Hypertension, present on admission. ongoing. # Chronic diabetes mellitus type II. Stable - HgA1c 7.7 - Will need close followup with primary care provider for further treatment and management as outpatient. Consultations 1. Nephrology (Dr. Dang) Procedures XRay, CTs & MRIs X-RAY CHEST, TWO VIEWS IMPRESSION: Acute disease is not seen in the two-view chest. No evidence for failure or infiltrate. Dictated by: William Marte M.D. on 12/09/2016 at 19:27 Approved by: William Marte M.D. on 12/09/2016 at 19:28 . Brief History As noted in H&P by Dr. Michel: Sol Ren is a 66 year old woman with a PMH of ESRD on MWF Hemodialysis, DM2 with nephropathy and neuropathy, and CVA who presents with a 1 day history of shaking chills which she states are very similar to a previous episode associated with a severe "blood infection". She states that she wasn't feeling well last evening following her dialysis, and when she awoke she continued to feel ill and in the afternoon began to manifest shaking and chills with a single event of emesis. She denies productive cough, SOB, chest pain, urinary symptoms, pain or redness at fistula site, neck tenderness or restricted ROM, headache, diarrhea or constipation, or any soft tissue swelling or pain. She states that she does make a small amount of urine in the mornings and did so today without incident. In the ED the patient showed leukocytosis and elevated Procalcitonin, Hyperkalemia, and a benign ECG with negative Trop. She was started on Vanco and Zosyn. Comprehensive ROS negative except as outlined above. Hospital Course # Suspected acute sepsis, present on admission. Ruled out given no obvious source of infection and clinically resolved. -blood cultures negative to date -treated empirically with Vancomycin and Zosyn which was stopped on 12/12/16 given no obvious source of infection. -afebrile for 72 hours prior to discharge -per discussion with nephrology consult will discharge home without further antibiotics but recommendation for close followup by nephrology and PCP in coming days # ESRD on dialysis, present on admission, chronic. Active - MWF dialysis patient in [place] - Dr. Dang from nephrology was consulted - patient underwent hemodialysis per routine during this hospital # Hyperkalemia, present on admission, acuity unknown. Resolved. # HTN, present on admission, chronic. Stable - Continue home Amlodipine and lisinopril (held due to hyperkalemia initially) # DM2, present on admission, chronic. Stable - Lispro low dose correctional scale - A1c 7.7 - further followup and management as outpatient by day of discharge lungs CTA bilaterally. abdomen is soft, non-tender, non- distended, and + bowel tones. Exam Vital Signs (Last) Date Time Temp Pulse Resp B/P Pulse Ox O2 Delivery O2 Flow Rate FiO2 12/13/16 12:40 77 12/13/16 03:42 36.7 16 164/72 93 Room Air Test 12/09/16 18:58 12/09/16 20:37 12/10/16 02:25 12/10/16 15:18 Prothrombin Time 9.9sec (8.1-12.5) Prothromb Time International Ratio 0.93ratio Activated Partial Thromboplast Time 25.4sec (22.8-33.0) Hemoglobin A1c 7.7% (4.8-5.6) Troponin T 0.025ug/L (0.0-0.011) Pro-B-Type Natriuretic Peptide 1698pg/mL (0-301) Hold Chamberlain Top Tube Received (Received) Urine Color Yellow (YELLOW) Urine Appearance Hazy (CLEAR,HAZY) Urine pH 8.5 (5.0-8.0) Urine Specific Grover 1.015 (1.003-1.035) Urine Protein 300mg/dL (NEG,TRACE) Urine Glucose (UA) 500mg/dL (NEGATIVE) Urine Ketones Negativemg/dL (NEGATIVE) Urine Occult Blood Trace (NEGATIVE) Urine Nitrite Negative (NEGATIVE) Urine Bilirubin Negative (NEGATIVE) Urine Urobilinogen Normalmg/dL (NORMAL) Urine Leukocyte Esterase Negative (NEGATIVE) Urine RBC 0-2/hpf (0-2) Urine WBC 0-5/hpf (0-5) Urine Epithelial Cells Few/hpf (NONE-MOD) Urine Crystals None seen (NONE SEEN) Urine Bacteria Few/hpf (NONE-FEW) Urine Hyaline Casts None/lpf (NONE) Urine Granular Casts None seen (NONE SEEN) Urine Waxy Casts None seen (NONE SEEN) Urine Red Blood Cell Casts None seen (NONE SEEN) Urine White Blood Cell Casts None seen (NONE SEEN) Urine Mucus None seen (None Seen) Urine Trichomonas None seen (NONE SEEN) Urine Yeast None (NONE SEEN) Urinalysis Comment None Urine Culture Reflexed Not indicated Phosphorus Level 2.6mg/dL (2.5-4.9) Magnesium Level 1.8mg/dL (1.6-2.6) Total Bilirubin 0.3mg/dL (0.0-1.2) Aspartate Amino Transf (AST/SGOT) 15U/L (0-50) Alanine Aminotransferase (ALT/SGPT) 19U/L (0-32) Alkaline Phosphatase 64U/L (25-165) Total Protein 5.6g/dL (6.4-8.4) Albumin 3.2g/dL (3.4-5.0) Lactic Acid Level 1.2mmol/L (0.4-2.0) Test 12/11/16 11:00 12/11/16 18:05 12/12/16 06:55 12/12/16 08:20 Hepatitis B Surface Antibody Reactive (.) Hepatitis B Core Total Antibody Negative (Negative) Hepatitis B Surface Antigen Negative (Negative) Hepatitis C Antibody <0.1s/co ratio (0.0-0.9) HIV (1&2) Ag and Ab, 4th Generation Non reactive (Non Reactive) Sodium Level 139mEq/L (134-144) Potassium Level 4.2mEq/L (3.5-5.2) Chloride Level 95mEq/L (97-108) Carbon Dioxide Level 28mmol/L (18-29) Blood Urea Nitrogen 24mg/dL (8-27) Creatinine 5.14mg/dL (0.57-1.00) Estimat Glomerular Filtration Rate 12mL/min (>59) Glucose Level 214mg/dL (60-99) Calcium Level 8.5mg/dL (8.5-10.1) Procalcitonin 1.49ng/mL (0.00-0.08) Random Vancomycin Level 21.6ug/mL Rx White Blood Count 6.6th/mm3 (3.8-10.1) Red Blood Count 3.25mil/mm3 (3.90-5.20) Hemoglobin 10.0g/dL (12.0-15.6) Hematocrit 30.6% (35.0-46.0) Mean Corpuscular Volume 94.2fL (81-100) Mean Corpuscular Hemoglobin 30.8pg (27.0-35.0) Mean Corpuscular Hemoglobin Concent 32.7% (32.0-37.0) Red Cell Distribution Width 13.1% (12.3-15.4) Platelet Count 184bil/L (150-400) Neutrophils (%) (Auto) 63.0% (40-74) Lymphocytes (%) (Auto) 19.8% (14-46) Monocytes (%) (Auto) 13.4% (4-12) Eosinophils (%) (Auto) 3.3% (0-5) Basophils (%) (Auto) 0.3% (0-3) Discharge Medications Discharge Medications Amlodipine (Amlodipine) 5 Mg Tablet 5 MG PO DAILY (Reported) Aspirin (Aspirin) 81 Mg Tablet 81 MG PO DAILY (Reported) Gabapentin (Gabapentin) 300 Mg Capsule 300 MG PO HS (Reported) Lisinopril (Lisinopril) 20 Mg Tablet 20 MG PO DAILY (Reported) Simvastatin (Simvastatin) 20 Mg Tablet 20 MG PO HS (Reported) As needed Calcium Carbonate (Tums) 500 Mg Tab.chew 500 MG PO PRN PRN PRN For Indigestion ( Reported) Additional med instructions Resume home medications as before Followup Plan Disposition: Home Follow-up plan 1. Followup with primary care provider in 2-7 days 2. Followup with your ornamental ironworker in 2-5 days 3. Followup at dialysis center as previously scheduled Discharge Diet: Heart Healthy, Diabetic, Renal Diet Discharge Activity: No restrictions Patient Instructions Seek immediate medical attention if any new or worsening signs or symptoms occur. Follow-up Provider: Juan Carlos Beasley MD Provider: David Garcia MD Time spent 35 min copies to: Juan Carlos Beasley MD; David Garcia MD, Masoud Dec 13, 2016 15:31
--- NOTE | 2016-12-13 15:39 | NUR ---
Discharge pt. dc'd this afternoon after dialysis. LUE dressing over fistula c/d/i; denied pain or discomfort. A&Ox3. PIV dc'd; catheter intact. Medications and discharge instructions reviewed with pt; no questions. No new medications or prescriptions. Belongings with pt. No question about care. Escorted to private vehicle via w/c by student RN.
--- NOTE | 2016-12-13 16:34 | PCM.PNNEPH ---
Subjective Date of Service Dec 13, 2016 Subjective Patient continues to do well and offers no new complaints. She remains afebrile and blood cultures and other cultures were repeatedly negative. Exam Vital Signs Vital Sign - Last Date Time Temp Pulse Resp B/P Pulse Ox O2 Delivery O2 Flow Rate FiO2 12/13/16 12:40 77 12/13/16 03:42 36.7 16 164/72 93 Room Air Intake and Output 12/12/16 12/12/16 12/13/16 Cumulative From/Thru 15:00 23:00 07:00 12/09/16 15:49 - 12/13/16 06:56 Intake Total 808 ml 240 ml 5928 ml Output Total 100 ml 150 ml 3551 ml Balance 708 ml 90 ml 2377 ml Intake Oral 672 ml 240 ml 3372 ml IV Total 136 ml 2556 ml Output Urine Total 100 ml 150 ml 1550 ml Urine/Stool Mix 1 ml Ultrafiltrate 2000 ml # Voids 3 3 # Bowel Movements 1 9 Exam Lungs are clear to auscultation. Heart is regular with mechanical soft systolic murmur. Abdomen soft without any tenderness rebound guarding masses or hepatosplenomegaly. Extremities do not show any evidence of any clubbing, cyanosis, or edema. Skin turgor is good. Lab and Diagnostics Result Diagram: 12/12/16 0820 12/12/16 0655 X-Rays, CTs and MRIs X-RAY CHEST, TWO VIEWS IMPRESSION: Acute disease is not seen in the two-view chest. No evidence for failure or infiltrate. Dictated by: William Marte M.D. on 12/09/2016 at 19:27 Approved by: William Marte M.D. on 12/09/2016 at 19:28 . Plan Impression Impression #1 end-stage renal disease dialysis dependent Recommendations #1 patient is being dialyzed today for routine treatment for 3-1 /2 hours, 3 potassium bath, about 1200 units of heparin and 2 kg of fluid to be removed. Following dialysis she can be discharged from my point of view. Hubert Dang DO Dec 13, 2016 16:34
== END 2016-12-13 15:10 | disposition home or self-care (01) | DRG 640 ==
LOC: SED 15:28 → PCC 21:49 → MPC 12-11 23:34
PROVIDERS: ADMIT Internal Medicine; ATTEND Internal Medicine
PROC: 5A1D60Z (ICD-10-PCS; principal; 2016-12-11)
DX: E87.5 Hyperkalemia (principal); N18.6 End stage renal disease; I13.11 Hypertensive heart and chronic kidney disease without heart failure, with stage 5 chronic kidney disease, or end stage renal disease; R71.0 Precipitous drop in hematocrit; I69.354 Hemiplegia and hemiparesis following cerebral infarction affecting left non-dominant side; R50.9 Fever, unspecified; F17.200 Nicotine dependence, unspecified, uncomplicated; E78.5 Hyperlipidemia, unspecified; E11.21 Type 2 diabetes mellitus with diabetic nephropathy; E11.40 Type 2 diabetes mellitus with diabetic neuropathy, unspecified; Z99.2 Dependence on renal dialysis